=== PATIENT | male | born 1945 | race Caucasian/White ===

== ENCOUNTER 2016-07-27 18:18 | Emergency (ER) | payer OTHER ==
[2016-07-27] MEDS ORDERED: METHYLPRED SOD SUCC 125 MG/2 ML VIAL ONE (22:06)
[2016-07-27] MEDS ORDERED: NEB-XOPENEX 1.25 MG/3 ML INH ONE (22:06)
== END 2016-07-27 22:21 | disposition home or self-care (01) ==
LOC: ER 18:18
CPT/HCPCS: 71020 ×2; 94640 ×2; 96372 ×2; 99283; J2930